=== PATIENT | male | born 1990 | race Two or more races ===

== ENCOUNTER 2025-02-20 19:50 | Inpatient (IN) | payer MEDICAID ==
[~2025-02-20] VITALS: Ht 175.3 cm; Wt 90.7 kg
[2025-02-20 20:19] LABS: PLATELET COUNT (AUTO) 332 K/uL (150-450); RED BLOOD CELL COUNT(AUTO) 4.74 MIL/uL (4.5-6.0); RED CELL DISTRIBUTION WIDTH 13.8 % (11.5-15.0); WHITE BLOOD COUNT (AUTO) 13.2 K/uL (4.3-11.0)
[2025-02-20 20:27] LABS: CALCIUM, SERUM 9.2 mg/dL (8.5-10.1); CREATININE 1.3 mg/dL (0.6-1.3); SODIUM SERUM 140 mmol/L (136-145); UREA NITROGEN, BLOOD 20 mg/dL (7-18)
[2025-02-20] MEDS: IV NS 0.9% 1,000 ML BAG IV ONE (20:30)
[2025-02-20 20:40] LABS: NT-PRO BNP 15 pg/mL (0-125)
[2025-02-20] MEDS ORDERED: ONDANSETRON HCL/PF 4 MG/2 ML VIAL IVP PRN (21:30)
[2025-02-20] MEDS ORDERED: MAG HYDROX/AL HYDROX/SIMETH 30 ML UDC PO PRN (21:30)
[2025-02-20] MEDS ORDERED: TEMAZEPAM 15 MG CAPSULE PO PRN (21:30)
[2025-02-20] MEDS ORDERED: MAGNESIUM HYDROXIDE 30 ML UDC PO PRN (21:30)
[2025-02-20 22:50] VITALS: BP 133/83; TEMP 97.9; O2SAT 100
[2025-02-20] MEDS: POTASSIUM CHLORIDE 20 MEQ TAB.PRT.SR PO ONE (22:56)
[2025-02-20] MEDS: ACETAMINOPHEN 325 MG TABLET PO PRN (23:43)
[2025-02-21] MEDS: IV NS 0.9% 1,000 ML IV PRN (03:50)
[2025-02-21] MEDS: HYDROCODONE/APAP 5/325MG TABLET PO PRN (03:54)
[2025-02-21 06:36] LABS: PLATELET COUNT (AUTO) 280 K/uL (150-450); RED BLOOD CELL COUNT(AUTO) 4.24 MIL/uL (4.5-6.0); RED CELL DISTRIBUTION WIDTH 13.8 % (11.5-15.0); WHITE BLOOD COUNT (AUTO) 11.5 K/uL (4.3-11.0)
[2025-02-21 06:56] LABS: CALCIUM, SERUM 8.4 mg/dL (8.5-10.1); CREATININE 0.9 mg/dL (0.6-1.3); PHOSPHORUS 3.6 mg/dL (2.5-4.9); SODIUM SERUM 142.0 mmol/L (136-145); UREA NITROGEN, BLOOD 21.0 mg/dL (7-18)
[2025-02-21 07:05] LABS: CREATINE KINASE, TOTAL 885.0 U/L (39-308)
[2025-02-21 08:00] VITALS: BP 121/53; TEMP 98.2; O2SAT 100
[2025-02-21] MEDS: PANTOPRAZOLE 40 MG TABLET.DR PO SCH (09:09)
[2025-02-21] MEDS: POTASSIUM CHLORIDE 20 MEQ TAB.PRT.SR PO SCH (11:00)
[2025-02-21] MEDS: POTASSIUM CHLORIDE 20 MEQ TAB.PRT.SR PO ONE (11:36)
[2025-02-21 16:00] VITALS: BP 117/70; TEMP 98.1; O2SAT 100
[2025-02-21 20:00] VITALS: BP 122/75; TEMP 98.2; O2SAT 98
[2025-02-22] VITALS: BP 110/75; TEMP 98.1; O2SAT 100
[2025-02-22 06:23] LABS: PLATELET COUNT (AUTO) 229 K/uL (150-450); RED BLOOD CELL COUNT(AUTO) 4.13 MIL/uL (4.5-6.0); RED CELL DISTRIBUTION WIDTH 14.2 % (11.5-15.0); WHITE BLOOD COUNT (AUTO) 8.9 K/uL (4.3-11.0)
[2025-02-22 06:45] LABS: CALCIUM, SERUM 8.4 mg/dL (8.5-10.1); CREATININE 0.7 mg/dL (0.6-1.3); PHOSPHORUS 2.7 mg/dL (2.5-4.9); SODIUM SERUM 143.0 mmol/L (136-145); UREA NITROGEN, BLOOD 11.0 mg/dL (7-18)
[2025-02-22 07:00] VITALS: BP 125/75; TEMP 98.4; O2SAT 99
[2025-02-22] MEDS: HYDROCODONE/APAP 10/325MG TABLET PO PRN (10:47)
[2025-02-22 16:00] VITALS: BP 110/67; TEMP 97.7; O2SAT 100
== END 2025-02-22 16:46 | disposition home or self-care (01) | DRG 815 ==
LOC: ER 19:53 → MED 22:34
PROVIDERS: ADMIT Registered Nurse Psychiatric/Mental Health; ATTEND Nurse Practitioner Acute Care
DX: T67.5XXA Heat exhaustion, unspecified, initial encounter (principal); M62.82 Rhabdomyolysis; K76.0 Fatty (change of) liver, not elsewhere classified; X30.XXXA Exposure to excessive natural heat, initial encounter; Y93.H3 Activity, building and construction; Y92.69 Other specified industrial and construction area as the place of occurrence of the external cause; Y99.0 Civilian activity done for income or pay; R79.89 Other specified abnormal findings of blood chemistry; E87.6 Hypokalemia; F17.200 Nicotine dependence, unspecified, uncomplicated; E66.9 Obesity, unspecified; Z68.29 Body mass index [BMI] 29.0-29.9, adult; Z87.81 Personal history of (healed) traumatic fracture; Z98.890 Other specified postprocedural states
CPT/HCPCS: 36415; 71045-TC; 73560-TC; 80048-TC; 82550-TC; 82553; 83735-TC; 83880; 84100-TC; 84484-TC; 85025-TC; A4223; G0378; J7030